=== PATIENT | female | born 1990 | race Asian ===

== ENCOUNTER 2022-03-15 08:17 | Outpatient (REF) | payer SELFPAY ==
[2022-03-15 08:58] LABS: COVID-19 Test Negative (Negative); IDNOW Serial# 16C4AD1C
== END 2022-03-15 08:18 | disposition home or self-care (01) ==
LOC: HO.LAB 08:17
PROVIDERS: Visit Provider Internal Medicine
DX: Z20.822 Contact with and (suspected) exposure to COVID-19 (principal)
CPT/HCPCS: 87635